=== PATIENT | male | born 1990 | race African-American/Black ===

== ENCOUNTER 2017-05-19 03:07 | Emergency (ER) | payer SELFPAY ==
[~2017-05-19] VITALS: Ht 172.7 cm; Wt 71.3 kg
[~2017-05-19 03:07] MED LIST: NOHOMEMEDS
[2017-05-19] MEDS ORDERED: PEN-VEE K,VEET500 MG PO (06:19)
[2017-05-19] MEDS ORDERED: NAPROXEN500 MG PO (06:19)
[2017-05-19 07:14] VITALS: BP 113/74
== END 2017-05-19 07:15 | disposition home or self-care (01) ==
LOC: EME 03:07
DX: K08.89 Other specified disorders of teeth and supporting structures (principal)
CPT/HCPCS: 99281; 99282

== ENCOUNTER 2017-10-14 12:42 | Emergency (ER) | payer OTHER ==
[~2017-10-14] VITALS: Ht 175.3 cm; Wt 71.5 kg
[~2017-10-14 12:42] MED LIST changes: +NAPROXEN500 MG PO; +PEN-VEE K,VEET500 MG PO
[2017-10-14 14:17] LABS: HEMATOCRIT 40.9 % (38.0-50.0); HEMOGLOBIN 14.2 G/DL (12.5-16.6); MCH 30.1 PG (29.0-34.0); MCHC 34.7 G/DL (30.0-36.0); MCV 86.7 FL (86-99); PLATELET COUNT 313 K/uL (156-360); RBC DIS.WIDTH-CV 11.4 % (11.8-14.6); RBC DIS.WIDTH-SD 36.5 % (39-53); RED BLOOD COUNT 4.72 M/uL (4.00-5.50); WHITE BLOOD COUNT 4.4 K/uL (4.1-10.2)
[2017-10-14 14:30] LABS: CHLORIDE 105 mEq/L (99-109); POTASSIUM 3.8 mEq/L (3.7-5.4); SODIUM 140 mEq/L (136-147)
[2017-10-14 14:32] LABS: GLUCOSE 68 mg/dL (70-99)
[2017-10-14 14:36] LABS: GFR ESTIMATE (CALCULATED) > 59 mL/min/ (58.99-99999)
[2017-10-14 14:37] LABS: UREA NITROGEN (BUN) 9 mg/dL (9-23)
[2017-10-14 16:14] VITALS: BP 115/72
== END 2017-10-14 16:16 | disposition left against medical advice (07) ==
LOC: EME 12:42
PROVIDERS: Physician Assistant
DX: R22.1 Localized swelling, mass and lump, neck (principal)
CPT/HCPCS: 70491; 80048; 85027; 99281; 99284